=== PATIENT | male | born 1965 | race Caucasian/White ===

== ENCOUNTER 2021-06-29 07:00 | Outpatient (CLI) | payer MEDICAID ==
--- NOTE | 2021-06-29 14:37 | XRAY Report ---
PROCEDURE: Calcaneus RT INDICATIONS: PAIN IN RIGHT CALCANEUS TECHNIQUE: Two views of the calcaneus were acquired. COMPARISON: None FINDINGS: Bones: No fractures or dislocations. No suspicious bony lesions. Soft tissues: No suspicious calcifications. Achilles tendon appears normal. IMPRESSION: Unremarkable radiographic examination of right calcaneus. Reviewed by: Adria Dee MD on 06/29/2021 2:36 PM PDT Approved by: Adria Dee MD on 06/29/2021 2:36 PM PDT Station ID: [id number]
--- NOTE | 2021-06-29 14:40 | XRAY Report ---
PROCEDURE: Clavicle LT INDICATIONS: PAIN IN LEFT SHOULDER TECHNIQUE: 2 views of the clavicle were acquired. COMPARISON: None. FINDINGS: Bones: No fractures or dislocations. Moderate acromioclavicular joint and glenohumeral joint osteoa rthritic changes are seen. No suspicious bony lesions. Soft tissues: No suspicious soft tissue calcifications. IMPRESSION: Moderate left shoulder joint osteoarthritis. No acute fracture or dislocation. Reviewed by: Adria Dee MD on 06/29/2021 2:39 PM PDT Approved by: Adria Dee MD on 06/29/2021 2:39 PM PDT Station ID: [id number]
== END 2021-06-29 23:59 | disposition home or self-care (01) ==
LOC: DI.S 07:00
PROVIDERS: ATTEND Registered Nurse
DX: M79.671 Pain in right foot (principal); M19.012 Primary osteoarthritis, left shoulder